=== PATIENT | female | born 1970 | race Caucasian/White ===

== ENCOUNTER 2017-06-11 18:28 | Observation (INO) ==
[2017-06-11 19:03] LABS: Basophils % 0.1 %; Eosinophils % 0.1 %; Hematocrit 38.3 % (35.3-44.9); Hemoglobin 13.7 g/dL (11.5-15.4); Immature Granulocytes % 0.3 % (0-4); Lymphocytes # 1.7 K/mcL (0.6-4.6); Lymphocytes % 16.1 %; Mean Corpuscular HGB Conc 35.8 g/dL (31.6-35.5); Mean Corpuscular Hemoglobin 32.9 pg (28.0-33.3); Mean Corpuscular Volume 91.8 fL (83.0-100.0); Mean Platelet Volume 9.9 fL (9.4-12.4); Monocytes # 0.5 K/mcL (0.0-1.3); Monocytes % 5.3 %; Platelet Count 251 K/mcL (140-400); Red Blood Count 4.17 M/mcL (3.82-4.97); Red Cell Distribution Width 12.1 % (11.5-14.5); Segmented Neutrophils % 78.1 %
--- NOTE | 2017-06-11 19:08 | Emergency Department Note ---
Disposition Clinical Impression: Psychotic disorder Disposition: Transfer Psychiatric Hosp Condition: Good Referrals: NONE,PCP [Primary Care Provider] - Forms: ED Satisfaction Letter, Work/School Release General Adult HPI - General Chief complaint: ED General Medical Stated complaint: seizure vs psych Time Seen by Provider: 06/11/17 18:40 Source: EMS Mode of arrival: EMS Limitations: altered mental status, physical limitation, other Nursing Notes Reviewed: Yes Vital Signs Reviewed: Yes - History of Present Illness HPI Narrative: Patient has been semi-responsive all day on the couch at home. Once the kids got home from school they decided to bring her here for evaluation. She has been clenching her fists looking around moaning and breathing rapidly all day. Onset (ago): hour(s) (several hours) Pain Scale: 1 Consistency: constant Improves with: nothing Worsens with: nothing Associated symptoms: Reports: other (Acording to the she was fine before this started.) - Related Data Home Medications Medication Instructions Recorded Confirmed Ascorbic Acid/Vit B12/Zinc [Sm 1 each PO 11/03/16 Zinc Plus Lozenge] Multivitamin [Multivitamins] 11/03/16 Previous Rx's Medication Instructions Recorded Ciprofloxacin HCl [Cipro] 500 mg PO BID #10 tablet 11/03/16 Phenazopyridine HCl [Pyridium] 200 mg PO TIDAC #6 tab 11/03/16 Promethazine [Phenergan] 25 mg PO Q6HR #15 tablet 11/03/16 Allergies Allergy/AdvReac Type Severity Reaction Status Date / Time Penicillins [PCN] Allergy Rash Verified 11/03/16 11:18 Limitations: ROS unobtainable due to patients medical condition Past Medical History - Past Medical History Source: obtained from family Medical history: Reports: no medical history Surgical history: Reports: non-contributory - Social History Smoking Status: Never smoker Smokeless Tobacco Status: No Alcohol use: Reports: none Drug use: Reports: none Physical Exam - General Limitations: altered mental status, physical limitation, other General appearance: alert - Head Head exam: atraumatic, normocephalic - Eye Eye exam: Present: normal appearance, PERRL - ENT ENT exam: normal exam, normal oropharynx, mucous membranes moist - Neck Neck exam: Present: normal inspection - Chest Chest inspection: Present: normal inspection - Respiratory Respiratory exam: Present: normal lung sounds bilaterally - Cardiovascular Cardiovascular exam: Present: normal rhythm, tachycardia - Abdominal Exam Abdominal exam: Present: soft, Non-Tender, normal bowel sounds - Extremities Exam Extremities exam: Present: normal inspection - Neurological Exam Neurological exam: Present: other (altered mental status.) - Skin Skin exam: Present: warm, dry, intact. Absent: rash, cyanosis, diaphoresis, erythema Course Vital Signs Temperature 98.8 F 06/11/17 18:36 Pulse Rate 120 06/11/17 18:36 Respiratory Rate 46 06/11/17 18:36 Blood Pressure 147/97 06/11/17 18:36 O2 Sat by Pulse Oximetry 97 06/11/17 18:36 Temperature 98.6 F 06/12/17 03:57 Pulse Rate 126 06/12/17 08:05 Respiratory Rate 18 06/12/17 08:05 Blood Pressure 169/107 06/12/17 08:05 O2 Sat by Pulse Oximetry 98 06/12/17 05:44 Oxygen Delivery Oxygen Delivery Room Air Medical Decision Making - MDM Narrative Medical decision making narrative: Patient was seen by [facility] mental health they are unable to place her tonight. She will probably be able to place her tomorrow so that is the plan at this point. Patient did well over night sleeping but needed one additional dose of geodon - I anticipate placement in a psych facility this AM. - Lab Data Result diagrams: 06/11/17 18:56 06/11/17 18:56 Lab Results 06/11/17 06/11/17 06/11/17 Range/Units 18:56 18:56 18:56 WBC 10.2 (4.3-11.1) K/mcL RBC 4.17 (3.82-4.97) M/mcL Hgb 13.7 (11.5-15.4) g/dL Hct 38.3 (35.3-44.9) % MCV 91.8 (83.0-100.0) fL MCH 32.9 (28.0-33.3) pg MCHC 35.8 H (31.6-35.5) g/dL RDW 12.1 (11.5-14.5) % Plt Count 251 (140-400) K/mcL MPV 9.9 (9.4-12.4) fL Immature Gran % 0.3 (0-4) % Seg Neutrophils % 78.1 % Lymphocytes % 16.1 % Monocytes % 5.3 % Eosinophils % 0.1 % Basophils % 0.1 % Neutrophils # 8.0 (1.6-8.9) K/mcL Lymphocytes # 1.7 (0.6-4.6) K/mcL Monocytes # 0.5 (0.0-1.3) K/mcL Eosinophils # 0.0 (0.0-0.6) K/mcL Basophils # 0.0 (0.0-0.2) K/mcL PT 11.0 (9.4-12.1) Seconds INR 1.0 APTT 28.3 (26.0-36.0) Seconds D-Dimer < 215 (0-500) ng/mLFEU Sample Site ABG pH (7.32-7.45) pH Units ABG pCO2 (35-45) mmHg ABG pO2 (85-104) mmHg ABG HCO3 (21-27) mEq/L ABG Total CO2 (20-26) mEq/L ABG O2 Saturation (95-98) % ABG Base Excess (-2 to 3) mEq/L Dylan Test O2 Delivery Device Sodium 140 (136-145) mEq/L Potassium 3.8 (3.5-4.5) mEq/L Chloride 109 (98-109) mEq/L Carbon Dioxide 18 L (19-29) mEq/L BUN 11 (7-20) mg/dL Creatinine 0.75 (0.57-1.11) mg/dL Est GFR ( Amer) > 60 (> 60) Est GFR (Non-Af Amer) > 60 (> 60) BUN/Creatinine Ratio 15 (6-26) Glucose 105 H (70-99) mg/dL Calculated Osmolality 290 (280-300) Lactic Acid (0.5-2.2) mmol/L Calcium 9.4 (8.6-10.8) mg/dL Total Bilirubin 0.7 (0.2-1.2) mg/dL AST 15 (5-34) Units/L ALT 16 (0-55) Units/L Alkaline Phosphatase 92 (38-126) Units/L Troponin I (0-0.03) ng/mL Serum Total Protein 7.4 (6.0-8.3) g/dL Albumin 4.1 (3.5-5.0) g/dL Globulin 3.3 (2.4-3.5) g/dL Albumin/Globulin Ratio 1.2 (1.1-2.2) Urine Color (Yellow) Urine Clarity (Clear) Urine pH (5.0-8.0) pH Units Ur Specific [place] (1.010-1.025) Urine Protein (Neg-Trace) mg/dL Urine Glucose (UA) (Normal) mg/dL Urine Ketones (Negative) mg/dL Urine Blood (Negative) Urine Nitrite (Negative) Urine Bilirubin (Negative) Urine Urobilinogen (Normal) mg/dL Ur Leukocyte Esterase (Negative) Ur Culture Indicated? (NO) Urine Test (Negative) Urine Opiates Screen (Mwolta=587) ng/mL Ur Oxycodone Screen (Cutoff= 100) ng/mL Ur Barbiturates Screen (Wxxzor=341) ng/mL Ur Phencyclidine Scrn (Cutoff=25) ng/mL Ur Amphetamines Screen (Vuirsy=1282) ng/mL U Benzodiazepines Scrn (Hfwelm=056) ng/mL Urine Cocaine Screen (Cutoff= 300) ng/mL U Marijuana (THC) Screen (Cutoff = 50) ng/mL 06/11/17 06/11/17 06/11/17 Range/Units 18:56 18:56 19:19 WBC (4.3-11.1) K/mcL RBC (3.82-4.97) M/mcL Hgb (11.5-15.4) g/dL Hct (35.3-44.9) % MCV (83.0-100.0) fL MCH (28.0-33.3) pg MCHC (31.6-35.5) g/dL RDW (11.5-14.5) % Plt Count (140-400) K/mcL MPV (9.4-12.4) fL Immature Gran % (0-4) % Seg Neutrophils % % Lymphocytes % % Monocytes % % Eosinophils % % Basophils % % Neutrophils # (1.6-8.9) K/mcL Lymphocytes # (0.6-4.6) K/mcL Monocytes # (0.0-1.3) K/mcL Eosinophils # (0.0-0.6) K/mcL Basophils # (0.0-0.2) K/mcL PT (9.4-12.1) Seconds INR APTT (26.0-36.0) Seconds D-Dimer (0-500) ng/mLFEU Sample Site R Radial ABG pH 7.53 H (7.32-7.45) pH Units ABG pCO2 22 L (35-45) mmHg ABG pO2 105 H (85-104) mmHg ABG HCO3 18 L (21-27) mEq/L ABG Total CO2 19 L (20-26) mEq/L ABG O2 Saturation 99 H (95-98) % ABG Base Excess -2 (-2 to 3) mEq/L Dylan Test N/A O2 Delivery Device Room Air Sodium (136-145) mEq/L Potassium (3.5-4.5) mEq/L Chloride (98-109) mEq/L Carbon Dioxide (19-29) mEq/L BUN (7-20) mg/dL Creatinine (0.57-1.11) mg/dL Est GFR ( Amer) (> 60) Est GFR (Non-Af Amer) (> 60) BUN/Creatinine Ratio (6-26) Glucose (70-99) mg/dL Calculated Osmolality (280-300) Lactic Acid 1.2 (0.5-2.2) mmol/L Calcium (8.6-10.8) mg/dL Total Bilirubin (0.2-1.2) mg/dL AST (5-34) Units/L ALT (0-55) Units/L Alkaline Phosphatase (38-126) Units/L Troponin I 0.00 (0-0.03) ng/mL Serum Total Protein (6.0-8.3) g/dL Albumin (3.5-5.0) g/dL Globulin (2.4-3.5) g/dL Albumin/Globulin Ratio (1.1-2.2) Urine Color (Yellow) Urine Clarity (Clear) Urine pH (5.0-8.0) pH Units Ur Specific [place] (1.010-1.025) Urine Protein (Neg-Trace) mg/dL Urine Glucose (UA) (Normal) mg/dL Urine Ketones (Negative) mg/dL Urine Blood (Negative) Urine Nitrite (Negative) Urine Bilirubin (Negative) Urine Urobilinogen (Normal) mg/dL Ur Leukocyte Esterase (Negative) Ur Culture Indicated? (NO) Urine Test (Negative) Urine Opiates Screen (Fqophy=788) ng/mL Ur Oxycodone Screen (Cutoff= 100) ng/mL Ur Barbiturates Screen (Eahqrf=125) ng/mL Ur Phencyclidine Scrn (Cutoff=25) ng/mL Ur Amphetamines Screen (Fpidll=4541) ng/mL U Benzodiazepines Scrn (Mlcmta=602) ng/mL Urine Cocaine Screen (Cutoff= 300) ng/mL U Marijuana (THC) Screen (Cutoff = 50) ng/mL 06/11/17 06/11/17 06/11/17 Range/Units 19:20 19:20 19:25 WBC (4.3-11.1) K/mcL RBC (3.82-4.97) M/mcL Hgb (11.5-15.4) g/dL Hct (35.3-44.9) % MCV (83.0-100.0) fL MCH (28.0-33.3) pg MCHC (31.6-35.5) g/dL RDW (11.5-14.5) % Plt Count (140-400) K/mcL MPV (9.4-12.4) fL Immature Gran % (0-4) % Seg Neutrophils % % Lymphocytes % % Monocytes % % Eosinophils % % Basophils % % Neutrophils # (1.6-8.9) K/mcL Lymphocytes # (0.6-4.6) K/mcL Monocytes # (0.0-1.3) K/mcL Eosinophils # (0.0-0.6) K/mcL Basophils # (0.0-0.2) K/mcL PT (9.4-12.1) Seconds INR APTT (26.0-36.0) Seconds D-Dimer (0-500) ng/mLFEU Sample Site ABG pH (7.32-7.45) pH Units ABG pCO2 (35-45) mmHg ABG pO2 (85-104) mmHg ABG HCO3 (21-27) mEq/L ABG Total CO2 (20-26) mEq/L ABG O2 Saturation (95-98) % ABG Base Excess (-2 to 3) mEq/L Dylan Test O2 Delivery Device Sodium (136-145) mEq/L Potassium (3.5-4.5) mEq/L Chloride (98-109) mEq/L Carbon Dioxide (19-29) mEq/L BUN (7-20) mg/dL Creatinine (0.57-1.11) mg/dL Est GFR ( Amer) (> 60) Est GFR (Non-Af Amer) (> 60) BUN/Creatinine Ratio (6-26) Glucose (70-99) mg/dL Calculated Osmolality (280-300) Lactic Acid (0.5-2.2) mmol/L Calcium (8.6-10.8) mg/dL Total Bilirubin (0.2-1.2) mg/dL AST (5-34) Units/L ALT (0-55) Units/L Alkaline Phosphatase (38-126) Units/L Troponin I (0-0.03) ng/mL Serum Total Protein (6.0-8.3) g/dL Albumin (3.5-5.0) g/dL Globulin (2.4-3.5) g/dL Albumin/Globulin Ratio (1.1-2.2) Urine Color Light Yellow (Yellow) Urine Clarity Clear (Clear) Urine pH 5.5 (5.0-8.0) pH Units Ur Specific [place] <= 1.005 L (1.010-1.025) Urine Protein Negative (Neg-Trace) mg/dL Urine Glucose (UA) Normal (Normal) mg/dL Urine Ketones 40 H (Negative) mg/dL Urine Blood Negative (Negative) Urine Nitrite Negative (Negative) Urine Bilirubin Negative (Negative) Urine Urobilinogen Normal (Normal) mg/dL Ur Leukocyte Esterase Negative (Negative) Ur Culture Indicated? NO (NO) Urine Test Negative (Negative) Urine Opiates Screen Negative (Thzhea=337) ng/mL Ur Oxycodone Screen Negative (Cutoff= 100) ng/mL Ur Barbiturates Screen Positive H (Gdikoj=329) ng/mL Ur Phencyclidine Scrn Negative (Cutoff=25) ng/mL Ur Amphetamines Screen Negative (Tcrzai=9940) ng/mL U Benzodiazepines Scrn Negative (Cunori=750) ng/mL Urine Cocaine Screen Negative (Cutoff= 300) ng/mL U Marijuana (THC) Screen Negative (Cutoff = 50) ng/mL S.B.A.R. - S.B.A.R. Background: Presenting Complaint, Relevant PMH, Meds, & Allergies Assessment: Vital Signs, Course and respsone to treatment, Exam Concerns, Patient/Family Expectation, Pertinant Lab Results Recommendation: Barrier(s) to disposition Yunier Report Given to: Dr. Lenka Faye Repor Time: 08:20
[2017-06-11 19:12] LABS: Activated Partial Thrombo Time 28.3 Seconds (26.0-36.0)
[2017-06-11 19:13] LABS: D-Dimer < 215 ng/mLFEU (0-500)
[2017-06-11 19:21] LABS: Alanine Aminotransferase 16 Units/L (0-55); Albumin 4.1 g/dL (3.5-5.0); Albumin/Globulin Ratio 1.2 (1.1-2.2); Alkaline Phosphatase 92 Units/L (38-126); Aspartate Amino Transferase 15 Units/L (5-34); BUN/Creatinine Ratio 15 (6-26); Bilirubin,Total 0.7 mg/dL (0.2-1.2); Blood Urea Nitrogen 11 mg/dL (7-20); Calcium 9.4 mg/dL (8.6-10.8); Carbon Dioxide 18 mEq/L (19-29); Chloride 109 mEq/L (98-109); Globulin 3.3 g/dL (2.4-3.5); Glucose 105 mg/dL (70-99); Osmolality,Calculated 290 (280-300); Potassium 3.8 mEq/L (3.5-4.5); Sodium 140 mEq/L (136-145); Total Protein 7.4 g/dL (6.0-8.3); eGFR For African Americans > 60 (> 60); eGFR For Non-African Americans > 60 (> 60)
[2017-06-11 19:22] LABS: ABG Base Excess -2 mEq/L (-2 to 3); ABG HCO3 18 mEq/L (21-27); ABG Oxygen Saturation 99 % (95-98); ABG PCO2 22 mmHg (35-45); ABG PH 7.53 pH Units (7.32-7.45); ABG PO2 105 mmHg (85-104); ABG TCO2 19 mEq/L (20-26)
[2017-06-11 19:29] LABS: Bilirubin,Urine Negative (Negative); Blood,Urine Negative (Negative); Clarity,Urine Clear (Clear); Glucose,Urine (UA) Normal (Normal); Ketones,Urine 40 mg/dL (Negative); Leukocyte Esterase,Urine Negative (Negative); Nitrite,Urine Negative (Negative); PH,Urine 5.5 pH Units (5.0-8.0); Protein,Urine Negative (Neg-Trace); Specific Gravity,Urine <= 1.005 (1.010-1.025); Urobilinogen,Urine Normal (Normal)
[2017-06-11 19:31] LABS: Color,Urine Light Yellow (Yellow)
[2017-06-11 19:50] LABS: Amphetamine Screen,Urine Negative ng/mL (Cutoff=1000); Benzodiazepines Screen,Urine Negative ng/mL (Cutoff=200); Cannabinoid Screen,Urine Negative ng/mL (Cutoff = 50); Cocaine Screen,Urine Negative ng/mL (Cutoff= 300); Opiate Screen,Urine Negative ng/mL (Cutoff=300); Phencyclidine Screen,Urine Negative ng/mL (Cutoff=25)
[2017-06-11 19:54] LABS: Barbiturate Screen,Urine Positive ng/mL (Cutoff=200)
[2017-06-11] MEDS ORDERED: Ziprasidone injection 20 MG/ML VIAL IM ONE (22:19)
[2017-06-12] MEDS ORDERED: Ziprasidone injection 20 MG/ML VIAL IM STA (03:13)
[2017-06-12] MEDS ORDERED: Ondansetron 4 MG/2 ML VIAL IVP ONE (03:31)
[2017-06-12] MEDS ORDERED: Water for inj. (sterile) 10 ML IV ONE (03:41)
[2017-06-12] MEDS ORDERED: *HR* LORazepam 2 MG/ML VIAL IVP ONE (10:05)
[2017-06-12] MEDS: 0.9 % Sodium Chloride 1,000 ML IVC SCH ×5 (14:15→20:02)
[2017-06-12] MEDS ORDERED: Acetaminophen 325 MG TABLET PO PRN (15:17)
[2017-06-12] MEDS ORDERED: Ondansetron 4 MG/2 ML VIAL IVP PRN (15:17)
[2017-06-12] MEDS ORDERED: 0.9 % Sodium Chloride 1,000 ML IVC SCH (15:17)
[2017-06-12] MEDS ORDERED: Naloxone 0.4 MG/ML INJ IVP PRN (15:17)
[2017-06-12] MEDS ORDERED: ALPRAZolam 0.25 MG TABLET PO PRN (17:49)
--- NOTE | 2017-06-12 17:59 | Internal Med History&Physical ---
Date of Encounter: 06/12/17 Time of Encounter: 16:45 Assessment and Plan (1) Altered mental status Current visit: Yes Status: Acute Suspect multifactorial etiology including bipolar disorder with medication and alcohol use. She will be given scheduled Geodon and prn Xanax. Additional lab work will be ordered. Qualifiers: Altered mental status type: unspecified Qualified Code(s): R41.82 - Altered mental status, unspecified (2) Hypothyroidism Current visit: Yes Status: Acute We will check TSH in a.m. She states she has not used Synthroid for at least one year Qualifiers: Hypothyroidism type: unspecified Qualified Code(s): E03.9 - Hypothyroidism , unspecified (3) Bipolar disorder (manic depression) Current visit: Yes Status: Acute Geodon has been ordered Qualifiers: Current bipolar episode type: hypomanic Qualified Code(s): F31.0 - Bipolar disorder, current episode hypomanic Internal Medicine - H&P: HPI Chief complaint: Altered mental status Admitted From: Home Plans for Post Hospital Care: Home History of present illness: Ms. Luis is a 46 year old female who was brought to emergency room after family reported she had altered mental status. Family told staff in emergency room she had decreased responsiveness and had spent many hours on the couch at home. She seemed to have tachypnea and had moaning with fist clenching at times. She was evaluated in emergency room and was felt to be having acute psychosis. Mental health personnel was contacted and did evaluation but would not consider transfer until she was medically improved including resolution of observed tachycardia. After several hours in the emergency room she was transferred to [facility] floor for ongoing care needs and observation. She is now awake and answers questions. She reports a past diagnosis of bipolar disorder but does not follow routinely at mental health clinic. She also reports it has been approximately 2 years since she saw a PCP. Denies other mental health diagnoses. She states she has been under a lot of stress at home but the stress has lessened over the past few months. She states she considered harming herself approximately 4 years ago but states she no longer has similar thoughts. Past Med Surg Social Fam HX - Past Medical History Medical history: no medical history - Past Surgical History Surgical History: non-contributory - Social History Smoking Status: Never smoker Smokeless Tobacco Status: No Alcohol use: none Drug use: none Internal Medicine - H&P: Meds No Known Home Drugs 06/12/17 [History] 3 Allergy/AdvReac Type Severity Reaction Status Date / Time Penicillins [PCN] Allergy Rash Verified 11/03/16 11:18 All Systems PM: A 10-system review of systems was performed and is negative for pertinent findings except as documented above in the HPI. Review of systems: Gen.: She states her weight has increased approximately 15 pounds in the past year Cardiovascular: She has history of elevated blood pressure on occasion but does not take routine medication for hypertension. She denies AL heart failure angina DVT or pulmonary embolus Respiratory: She has smoked since age 18 a total of 26 years up to one and a half packs per day. She denies chronic lung disease GI: She denies disorders of her liver gallbladder or exocrine pancreas. She states she started drinking alcohol at age 21 and her present consumption is one half bottle or more per week of 70 proof rum. : She denies hematuria dysuria or kidney stones Neurologic: She has occasional migraine headaches. She denies large distribution strokes. She states she has had 2 seizures in the past. Endocrine: She has diagnosis of hypothyroidism but has not taken Synthroid for over a year. She denies diabetes or hyperlipidemia Hematology/oncology: She reports history of anemia. She denies internal malignancies or other blood disorders. Psychiatric: As per history of present illness [place] skeletal: She has occasional low back pain. She denies other bone joint or muscle disorders. - Constitutional Vitals: Temp Pulse Resp BP Pulse Ox 98.9 F 124 16 134/89 96 06/12/17 17:46 06/12/17 17:46 06/12/17 17:46 06/12/17 17:46 06/12/17 17:46 Exam: Gen.: She is a well-developed well-nourished female lying in bed who appears in no acute distress. HEENT: Head is atraumatic and normocephalic. Eyes: EOMI. There is no scleral icterus. Mouth: Mucosa is moist. Neck: Supple and nontender. There is no thyromegaly or adenopathy noted. Heart: Tachycardic at rate approximately 120/m. No murmurs or gallops are heard. Lungs: No wheezes or crackles are heard. Back: Straight without flank tenderness or presacral edema Abdomen: Soft and nontender. No masses or guarding are noted. Extremities: There is no cyanosis edema or clubbing noted. Dorsalis pedis and posttibial pulses are 1-2 over 2 bilaterally. Neurologic: Mental status: She is awake. She has slow but appropriate responses to questions. She seems to be a fair to good historian overall. Cranial nerves: Smile is symmetric. Forehead wrinkles bilaterally. Tongue protrudes midline. EOMI. Motor: There is no pronator drift. Rapid finger movement testing shows slowness but symmetry bilaterally. Cerebellar: Finger to nose is intact bilaterally. Skin: Warm and moist. Internal Med - H&P Results - Labs CBC & Chem 7: 06/11/17 18:56 06/11/17 18:56
[2017-06-12] MEDS: 0.45 % Sodium Chloride w/KCl 20 MEQ/1,000 ML MLS IVC SCH (18:47)
[2017-06-12] MEDS: Ziprasidone 20 MG CAPSULE PO SCH ×2 (18:48→18:50)
[2017-06-12 21:56] LABS: Folate 15.7 ng/mL (7.0-31.4)
[2017-06-13 06:34] LABS: Basophils % 0.2 %; Eosinophils % 0.8 %; Hematocrit 34.2 % (35.3-44.9); Hemoglobin 11.9 g/dL (11.5-15.4); Immature Granulocytes % 0.2 % (0-4); Lymphocytes # 1.6 K/mcL (0.6-4.6); Lymphocytes % 32.7 %; Mean Corpuscular HGB Conc 34.8 g/dL (31.6-35.5); Mean Corpuscular Hemoglobin 32.8 pg (28.0-33.3); Mean Corpuscular Volume 94.2 fL (83.0-100.0); Mean Platelet Volume 10.2 fL (9.4-12.4); Monocytes # 0.5 K/mcL (0.0-1.3); Monocytes % 10.2 %; Neutrophils # 2.7 K/mcL (1.6-8.9); Platelet Count 166 K/mcL (140-400); Red Blood Count 3.63 M/mcL (3.82-4.97); Segmented Neutrophils % 55.9 %
[2017-06-13] MEDS: *HR* LORazepam 2 MG/ML VIAL IVP PRN ×2 (08:05→23:15)
[2017-06-13] MEDS: 0.45 % Sodium Chloride w/KCl 20 MEQ/1,000 ML MLS IVC SCH (08:22)
[2017-06-13] MEDS: Ziprasidone 20 MG CAPSULE PO SCH ×2 (10:23→20:12)
[2017-06-13 11:07] LABS: BUN/Creatinine Ratio 14 (6-26); Blood Urea Nitrogen 9 mg/dL (7-20); Calcium 8.3 mg/dL (8.6-10.8); Carbon Dioxide 19 mEq/L (19-29); Chloride 113 mEq/L (98-109); Glucose 89 mg/dL (70-99); Osmolality,Calculated 286 (280-300); Potassium 3.9 mEq/L (3.5-4.5); Sodium 139 mEq/L (136-145); eGFR For African Americans > 60 (> 60); eGFR For Non-African Americans > 60 (> 60)
[2017-06-13 11:29] LABS: Thyroid Stimulating Hormone 1.622 mcIU/mL (0.350-4.840)
--- NOTE | 2017-06-13 18:18 | Electrocardiograph Report ---
[address] [place] [address] Test Date: 2017-06-11 Pat Name: Ale Luis Department: [id number] Room: [facility] Gender: F Clinical Trial Assistant: THALIA : [id number] Requested By: Gurinder Call Order Number: [id number] Reading MD: Joseluis Reyes DO Measurements Intervals [place] Rate: 120 P: 60 [place]: 146 QRS: 62 QRSD: 90 T: 62 QT: 332 QTc: 403 Interpretive Statements SINUS TACHYCARDIA Possible LVH Electronically Signed On 06-13-2017 18:16:35 EDT by Joseluis Reyes DO
[2017-06-14 06:22] VITALS: BP 113/75
--- NOTE | 2017-06-14 08:35 | Discharge Summary ---
Date of Encounter: 06/14/17 Time of Encounter: 08:25 - Discharge Diagnosis (1) Altered mental status Priority: Primary Status: Resolved Qualifiers: Altered mental status type: unspecified Qualified Code(s): R41.82 - Altered mental status, unspecified (2) Bipolar disorder (manic depression) Priority: Secondary Status: Chronic Qualifiers: Current bipolar episode type: hypomanic Qualified Code(s): F31.0 - Bipolar disorder, current episode hypomanic (3) Hypothyroidism Priority: Secondary Status: Resolved Qualifiers: Hypothyroidism type: unspecified Qualified Code(s): E03.9 - Hypothyroidism , unspecified - Discharge Medications Prescriptions: ALPRAZolam [Xanax 0.25 MG Tablet] 0.25 mg PO Q6H PRN #12 tablet PRN Reason: Anxiety Metoprolol XL (24 HR) Succ [Toprol XL] 25 mg PO DAILY #30 tab.er.24h Ziprasidone [Geodon] 20 mg PO BID #60 capsule Home Medications: ALPRAZolam [Xanax 0.25 MG Tablet] 0.25 mg PO Q6H PRN #12 tablet 06/14/17 [Rx] Metoprolol XL (24 HR) Succ [Toprol XL] 25 mg PO DAILY #30 tab.er.24h 06/14/17 [ Rx] Ziprasidone [Geodon] 20 mg PO BID #60 capsule 06/14/17 [Rx] Allergies/Adverse Reactions: 3 Allergy/AdvReac Type Severity Reaction Status Date / Time Penicillins [PCN] Allergy Rash Verified 11/03/16 11:18 Doxepin AdvReac See Verified 06/13/17 19:44 Comments gabapentin AdvReac Insomnia Verified 06/13/17 19:43 metoclopramide AdvReac Agitated Verified 06/13/17 19:43 topiramate AdvReac See Verified 06/13/17 19:42 Comments Date of admission: 06/12/17 15:11 Primary care physician: Alexys Hauser M.D. - Patient Status Disposition: Home, Self-Care Condition: Good Functional capacity at discharge: independent ambulation Overall status at discharge: patient is progressing back to baseline - Discharge Instructions Follow Up With: Casey Hauser MD [Non-Partnered Physician] - 1 week - Diet and Activity Activity: resume usual activities as tolerated Diet: advance to your usual diet Hospital course: Ms. Luis is a 46 year old female who was brought to emergency room after family reported she had altered mental status. Family told staff in emergency room she had decreased responsiveness and had spent many hours on the couch at home. She seemed to have tachypnea and had moaning with fist clenching at times. She was evaluated in emergency room and was felt to be having acute psychosis. Mental health personnel was contacted and did evaluation but would not consider transfer until she was medically improved including resolution of observed tachycardia. After several hours in the emergency room she was transferred to [facility] for ongoing care needs and observation. Initial orders were written by the emergency room physician. I saw her on June 12 and performed a history and physical. She was given scheduled Geodon and prn Xanax. Her mental status gradually returned to what I felt was baseline. She was appropriate in conversation and had appropriate affect by the day of discharge. She was seen by mental health clinic personnel daily and they recommended she follow-up as an outpatient. She was instructed to call [facility] June 16 to schedule an appointment. She will continue with scheduled Geodon and prn Xanax at discharge. Heart rate improved with use of metoprolol. Blood pressure remained stable. She will continue on Toprol-XL at discharge. She will follow with her PCP Dr. Alexys Hauser within one week. - Time Spent with Patient Total time spent providing and/or coordinating discharge services: - Constitutional Vitals: Temp Pulse Resp BP Pulse Ox 98.6 F 101 16 113/75 97 06/14/17 06:21 06/14/17 06:21 06/14/17 06:21 06/14/17 06:21 06/14/17 06:21
[2017-06-14] MEDS: Ziprasidone 20 MG CAPSULE PO SCH (08:49)
== END 2017-06-14 13:03 | disposition home or self-care (01) ==
LOC: INPPIK 18:28 → EMEROOPIK 18:28 → INPPIK 06-12 15:30
PROVIDERS: ADMIT Internal Medicine; ATTEND Internal Medicine